=== PATIENT | male | born 1980 | race Caucasian/White ===

== ENCOUNTER 2016-05-07 12:07 | Emergency (ER) ==
[2016-05-07] MEDS ORDERED: NORCO-10 PO ONE (12:43)
--- NOTE | 2016-05-07 12:51 | PROVIDER DOCUMENTATION ---
HPI-Musculoskeletal Pain/Inj - GENERAL Source: patient, family - HX OF PRESENT ILLNESS-MUSKULOSKELTAL Quality of Pain: reports: aching Severity in ED: mild Onset/Duration: this morning Timing: still present Modifying Factors: improves with: nothing Any recent injury?: No Locality of Occurance: Home Similar Symptoms Previously?: No Recently seen or treated by another doctor?: No - FALL INJURY Location of Pain/Injury: reports: feet (right ankle, right foot) Pain Radiation: reports: no radiation Reason for Fall: reports: other (on 3rd step of ladder outside) Symptoms prior to fall:: reports: none Loss of Consciousness: no loss of consciousness Injury Associated Symptoms: denies: back/neck pain, shortness of breath, vomiting - BACK & NECK PAIN/INJURY History of Chronic Neck or Back Pain?: No - LOWER EXTREMITY PAIN/INJURY Lower Extremities Pain: foot: right, ankle: right <Mamta Llanes - Last Filed: 05/07/16 13:35> <David Taylor - Last Filed: 05/07/16 13:58> - GENERAL Chief Complaint: Extremity Injury Stated Complaint: FALL/RIGHT ANKLE PAIN Time Seen by Provider: 05/07/16 12:24 - HX OF PRESENT ILLNESS-MUSKULOSKELTAL Nature of Presenting Problem: pt is a 35 y/o M present to the ER with c/o ankle pain. pt states he fell off a ladder, standing on the 3rd step and landed on his right foot.pt denies any loss of consciousness. pt denies back pain, knee pain, abdominal pain. (Mamta Llanes) Review of Systems - Adult - REVIEW OF SYSTEMS - ADULT Constitutional: reports: no symptoms reported Eyes: denies: decreased vision, blurred vision, double vision Ears, Nose, Mouth & Throat: reports: no symptoms reported Cardiovascular: reports: no symptoms reported Respiratory: reports: no symptoms reported Gastrointestinal: reports: no symptoms reported Genitourinary: reports: no symptoms reported Musculoskeletal: reports: bone pain, joint pain. denies: back pain, neck pain Integumentary: reports: no symptoms reported Neurological: denies: dizziness/vertigo, headache/migraines, loss of balance Psychiatric: reports: no symptoms reported Endocrine: reports: no symptoms reported Hematologic/Lymphatic: reports: no symptoms reported Allergic/Immunologic: reports: no symptoms reported All Other Systems: Reviewed and Negative <Mamta Llanes - Last Filed: 05/07/16 13:35> Past History - Adult - PAST MEDICAL HISTORY-ADULT Review of Records: reports: Nursing Assessment Review - IMMUNIZATION STATUS Childhood Immunizations: See Nurse Assessment Flu Vaccine: See Nurse Assessment <Mamta Llanes - Last Filed: 05/07/16 13:35> Physical Exam-Injury Related - Physical Exam-Injury Related Initial Vital Signs Reviewed: Yes General Appearance: appears well, alert, no apparent distress Eyes: PERRL/EOMI, pink conjunctivae Head, Ears, Nose, Mouth & Throat: moist mucous membranes, normal ENT inspection , TMs normal, pharynx normal Neck: non-tender, full range of motion Respiratory: chest non-tender, lungs clear Cardiovascular: normal peripheral pulses, regular rate, rhythm, no edema, no gallop, no JVD, no murmur Abdominal Exam: normal bowel sounds, non tender, soft Back Exam: normal inspection, no CVA tenderness, no vertebral tenderness Extremity: normal range of motion, tenderness (TTP lateral aspect of the right ankle) Integumentary: normal color, warm/dry Neurologic: grossly normal, no motor/sensory deficits Psych/Mental Status: normal mood/affect, normal thought content, normal thought process, oriented x 3 - Glascow Coma Score Best Eye Response (Dilan): (4) open spontaneously Best Verbal Response (Dilan): (5) oriented Best Motor Response (Dilan): (6) obeys commands [place] Total: 15 <Mamta Llanes - Last Filed: 05/07/16 13:35> Progress - XRAY 1 XRAY: Right XRAY Study: Ankle, Foot Impression: Abnormal XRAY Interpretation: Bimalleolar Ankle fracture <Mamta Llanes - Last Filed: 05/07/16 13:35> - REASSESSMENT Reassessment #1 Time Reassessed: 13:44 (multiple calls to ortho. Surgeon in surgery.) - CONSULTS/PCP/HOSPITALIST Notification #1 *Consult/PCP/Hospitalist*: Dr. Guzman (Ortho) Time Discussed: 13:56 Reason/Comments: Splint and send to office for follow up <David Taylor - Last Filed: 05/07/16 13:58> - PLAN OF CARE/RESULTS Progress/Plan/Lab Results: Orders Category Date Time Status OCL Splint DIRECTED Care 05/07/16 12:44 Active ANKLE COMPLETE RIGHT [RAD] Stat Exams 05/07/16 12:18 Taken EXTREM LOWER W/O CONTRAST [CT] Stat Exams 05/07/16 12:46 Ordered LOWER LEG-RIGHT [RAD] Stat Exams 05/07/16 12:17 Taken Hydrocodone/APAP 10 mg/325 mg [[place]-10] Med 05/07/16 12:43 Discontinued 1 each PO NOW ONE Vital Signs - 24 hr 05/07/16 12:13 Temperature 97.8 F Pulse Rate 86 Respiratory 14 Rate Blood Pressure 133/87 O2 Sat by Pulse 100 Oximetry MD paged the specialist megan Feliz at 12:48pm MD repaged DR. guzman at [phone] (Mamta Llanes) Orders Category Date Time Status Crutches DIRECTED Care 05/07/16 13:48 Active OCL Splint DIRECTED Care 05/07/16 12:44 Active ANKLE COMPLETE RIGHT [RAD] Stat Exams 05/07/16 12:18 Draft EXTREM LOWER W/O CONTRAST [CT] Stat Exams 05/07/16 12:46 Taken LOWER LEG-RIGHT [RAD] Stat Exams 05/07/16 12:17 Draft Hydrocodone/APAP 10 mg/325 mg [[place]-10] Med 05/07/16 12:43 Discontinued 1 each PO NOW ONE Vital Signs - 24 hr 05/07/16 12:13 Temperature 97.8 F Pulse Rate 86 Respiratory 14 Rate Blood Pressure 133/87 O2 Sat by Pulse 100 Oximetry (David Taylor) Departure <Mamta Llanes - Last Filed: 05/07/16 13:35> - Departure Time of Disposition Order: 13:56 Certified Medical Emergency: Emergent <David Taylor - Last Filed: 05/07/16 13:58> - Departure DIAGNOSIS: Bimalleolar fracture of right ankle Qualifiers: Encounter type: initial encounter Fracture type: closed Qualified Code(s): S82.841A - Displaced bimalleolar fracture of right lower leg, initial encounter for closed fracture Disposition: HOME 01 Condition: Stable Additional Instructions: ED Follow Up Instructions: You have been treated by a care provider in the Emergency Department. These instructions are being provided to you so you can have an understanding of how to care for yourself upon discharge. Upon discharge from the Emergency Department, you are responsible for making arrangements for follow-up care by a physician of your choice. Take all prescribed medications as directed. Return to the Emergency Department immediately for any new or worsening symptoms. You may call the Physician Referral phone number at [phone] to obtain a list of Physicians who are taking new patients. Prescriptions: Ibuprofen [Motrin] 800 mg PO Q8H PRN PRN #20 tablet PRN Reason: inflammation Hydrocodone/APAP 7.5 mg/325 mg [[place]-7.5] 1 each PO Q6H PRN PRN #10 tablet PRN Reason: Pain Omeprazole [Prilosec] 20 mg PO DAILY@0700 #20 capsule Referrals: [facility] [Provider Group] Attestation - Scribe Verification/Attestation Scribe:: Mamta Llanes Acting as Scribe for:: David Taylor Scribe documention review:: This chart was documented by a scribe and accurately reflects the service the provider performed and the decisions made by the provider. <Mamta Llanes - Last Filed: 05/07/16 13:35> - Physician/ BARB Attestation Patient care was provided by Advanced Practice Provider:: Yes Advanced Practice Provider:: David Taylor Advanced Practice Provider documentation review:: The Mid-level provider documentation, treatment plan and medical decision making was reviewed by the physician who agrees with all treatment and medical decision making by the [facility]. <David Taylor - Last Filed: 05/07/16 13:58> Physician Attestation - Physician Attestation I, the provider, attest to the following statement:: David Taylor Physician documentation Attestation:: This documentation recorded by the scribe accurately reflects the service I personally performed and the decisions made by me. <David Taylor - Last Filed: 05/07/16 13:58>
--- NOTE | 2016-05-07 12:55 | Diag Imaging Result Document ---
PROCEDURE NAME: LOWER LEG-RIGHT - 05/07/2016 X-RAY RIGHT LOWER LEG TWO VIEWS: COMPARISON: None. FINDINGS: There is no fracture of the lower leg.
--- NOTE | 2016-05-07 13:01 | Diag Imaging Result Document ---
PROCEDURE NAME: ANKLE COMPLETE RIGHT - 05/07/2016 X-RAY OF THE RIGHT ANKLE, THREE VIEWS: COMPARISON: None. FINDINGS: There are minimally displaced fractures through the medial and lateral malleoli of the right ankle. There is a large ankle joint effusion. No dislocation. There is very mild widening of the ankle mortise. IMPRESSION: Ankle fracture.
--- NOTE | 2016-05-07 14:19 | Diag Imaging Result Document ---
PROCEDURE NAME: NITIN LOWER W/O CONTRAST - 05/07/2016 CT RIGHT ANKLE WITHOUT CONTRAST: FINDINGS: There is a fracture through the distal fibula slightly angulating inferiorly tracking from the posterior portion of the fracture to the anterior portion of the fracture. There is only 1-2 mm of displacement. No significant angulation. There is also a fracture to the lateral malleolus. There is 1-2 mm of displacement. No other fracture at the ankle identified. IMPRESSION: Minimally displaced bimalleolar fractures. A preliminary report was given at 1:53 p.m..
[2016-05-07 15:11] VITALS: BP 136/92
== END 2016-05-07 15:10 | disposition home or self-care (01) ==
LOC: ED 12:07
DX: S82.841A Displaced bimalleolar fracture of right lower leg, initial encounter for closed fracture (principal); M25.571 Pain in right ankle and joints of right foot; W11.XXXA Fall on and from ladder, initial encounter
CPT/HCPCS: 73700